=== PATIENT | male | born 1990 | race African-American/Black ===

== ENCOUNTER 2020-06-04 17:02 | Emergency (ER) | payer OTHER ==
[~2020-06-04] VITALS: Ht 190.5 cm; Wt 136.1 kg
[2020-06-04] MEDS ORDERED: LORCET 5-325 M1 EACH PO (19:26)
[2020-06-04 20:00] VITALS: BP 156/110
== END 2020-06-04 20:08 | disposition home or self-care (01) ==
LOC: ER 17:02
DX: M25.552 Pain in left hip (principal); I10 Essential (primary) hypertension; F17.210 Nicotine dependence, cigarettes, uncomplicated